=== PATIENT | female | born 1965 | race Two or more races ===

== ENCOUNTER 2018-09-17 10:11 | Outpatient (CLI) | payer OTHER | END 2018-09-17 12:29 | disposition home or self-care (01) | LOC: LAB 10:11 | DX: J45.41 Moderate persistent asthma with (acute) exacerbation (principal) ==

== ENCOUNTER 2018-09-17 10:40 | Outpatient (CLI) | payer OTHER | END 2018-09-17 12:59 | disposition home or self-care (01) | LOC: TOM 10:40 | DX: J45.41 Moderate persistent asthma with (acute) exacerbation (principal); R06.02 Shortness of breath ==

== ENCOUNTER 2018-12-14 07:39 | Outpatient (CLI) | payer OTHER | END 2018-12-14 10:01 | disposition home or self-care (01) | LOC: SONOGRAMA 07:39 | DX: E04.1 Nontoxic single thyroid nodule (principal) ==